=== PATIENT | male | born 1980 | race Two or more races ===

== ENCOUNTER 2017-04-04 18:48 | Emergency (ER) | payer MEDICARE, MEDICAID ==
[2017-04-04 19:14] VITALS: BP 140/84
[2017-04-04] MEDS ORDERED: Cephalexin 500 MG Cap PO ONE (19:37)
[2017-04-04] MEDS ORDERED: Hydrocortisone/Neomycin/Polymyxin B Otic Susp 10 ML Bottle EARRT STA (19:39)
[2017-04-04] MEDS ORDERED: Acetaminophen/HYDROcodone 325-5 MG Tab PO STA (19:41)
[2017-04-04] MEDS ORDERED: Hydrocortisone/Neomycin/Polymyxin B Otic Susp 10 ML Bottle ONE (19:42)
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
[2017-04-04] MEDS ORDERED: Acetaminophen/HYDROcodone 325-5 MG Tab PO ONE (20:03)
[2017-04-04] MEDS ORDERED: Ketorolac 60 MG/2 ML SDV IM ONE (20:03)
== END 2017-04-04 20:10 | disposition home or self-care (01) ==
LOC: FB.ED 18:48
DX: H60.501 Unspecified acute noninfective otitis externa, right ear (principal); H65.194 Other acute nonsuppurative otitis media, recurrent, right ear; E78.00 Pure hypercholesterolemia, unspecified; I10 Essential (primary) hypertension; E11.9 Type 2 diabetes mellitus without complications; F41.9 Anxiety disorder, unspecified; F32.9 Major depressive disorder, single episode, unspecified; F17.210 Nicotine dependence, cigarettes, uncomplicated; Z79.899 Other long term (current) drug therapy
CPT/HCPCS: 96372; 99282; A9270; J1885; 99283

== ENCOUNTER 2017-04-08 20:08 | Emergency (ER) | payer MEDICARE, MEDICAID ==
[2017-04-08] MEDS ORDERED: Fluticasone Propionate Nasal Spray 16 GM Bottle NASBOTH SCH (20:45)
[2017-04-08 21:01] VITALS: BP 133/67
--- NOTE | 2017-04-09 00:40 | ER ---
DATE SEEN: 04/08/2017 CHIEF COMPLAINT: Pain in ear. HISTORY OF PRESENT ILLNESS: A 37-year-old male with ear infection, complains of pain, fullness on the right. Has been taking [place] with no relief. He saw Dr. Marquez earlier today, who sent was suppose to send a prescription for a Flonase, but apparently it was missed. REVIEW OF SYSTEMS: No fever or chills. No sore throat. No headache. MEDICATIONS: Reviewed. PHYSICAL EXAMINATION: GENERAL: Afebrile, normotensive. HEENT: Head normal size. Eyes normal. Neck supple. Oropharynx clear. Ears, external ears normal. Canals are patent. The right TM is inflamed, erythematous, and bulging. IMPRESSION: Otitis media. PLAN: The Flonase was given to use two puffs nasally b.i.d. May use Claritin as well, which helped with congestion. Follow up with PCP tomorrow. Return to the ED with worsening symptoms. TIME SEEN: 2030 hours. /[id number] TERE/VANIA
== END 2017-04-08 21:10 | disposition home or self-care (01) ==
LOC: FB.ED 20:08
DX: H66.91 Otitis media, unspecified, right ear (principal)
CPT/HCPCS: 99282; A9270

== ENCOUNTER 2018-11-16 00:14 | Emergency (ER) | payer MEDICARE, MEDICAID ==
[2018-11-16] MEDS ORDERED: Sodium Chloride 0.9% 10 ML Syringe FLUSH PRN (01:03)
[2018-11-16] MEDS ORDERED: Sodium Chloride 0.9% 1,000 ML IV ONE (01:03)
[2018-11-16 02:47] LABS: HEMOGLOBIN A1C 8.4 % (4.5-6.2)
[2018-11-16] MEDS ORDERED: LORazepam 1 MG Tab PO ONE (02:49)
[2018-11-16 03:07] VITALS: BP 146/93
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
== END 2018-11-16 03:00 | disposition home or self-care (01) ==
LOC: FB.ED 00:14
DX: F41.0 Panic disorder [episodic paroxysmal anxiety] (principal); F45.8 Other somatoform disorders; E66.01 Morbid (severe) obesity due to excess calories; H54.42 Blindness, left eye, normal vision right eye; F17.210 Nicotine dependence, cigarettes, uncomplicated; I10 Essential (primary) hypertension; E66.9 Obesity, unspecified; E11.9 Type 2 diabetes mellitus without complications; Z79.899 Other long term (current) drug therapy
CPT/HCPCS: 36415; 80053; 82150; 83036; 84484; 85025; 93005; 96360; 99283; A9270; J7030

== ENCOUNTER 2018-12-24 02:53 | Emergency (ER) | payer MEDICAID, MEDICARE ==
[2018-12-24 03:14] VITALS: BP 137/60
[2018-12-24] MEDS ORDERED: Amoxicillin/Clavulanate K 875-125 MG Tab PO ONE (03:35)
--- NOTE | 2018-12-24 03:39 | EDM.PDOC ---
ED HPI GENERAL MEDICAL PROBLEM - General Chief Complaint: ENT Problem Stated Complaint: ANXIETY Time Seen by Provider: 12/24/18 02:53 Source of Information: Reports: Patient History Limitations: Reports: No Limitations - History of Present Illness INITIAL COMMENTS - FREE TEXT/NARRATIVE: 38 y.o.b. male came to the ed this am due to sore throat, his throat is swelling up, it hurts to eat and drink. He took 2 Xanax for pain FILTERER, no help. No N/V/D no dizziness no SOB, no CP, no other acute medical issues. BP 137/60 RR 18 Pulse ox 99% on RP Pulse 80 Temp 36.8 Onset: Gradual Onset Date: 12/24/18 Onset Time: 01:00 Duration: Hour(s):, Intermittent Location: Reports: Face (throat) Quality: Reports: Ache, Burning Severity: Moderate Improves with: Reports: Medication Worsens with: Reports: Other (swallowing water) Context: Reports: Sick Contact Treatments FILTERER: Reports: Other Medication(s) (Xanex) - Related Data Allergies Allergy/AdvReac Type Severity Reaction Status Date / Time No Known Allergies Allergy Verified 12/24/18 03:34 Home Meds: Home Meds Lisinopril 20 mg PO DAILY 06/13/18 [History] metFORMIN [Glucophage XR] 500 mg PO BIDMEALS 06/13/18 [History] ALPRAZolam 2 mg PO TID PRN 11/16/18 [History] Atenolol/Chlorthalidone [Atenolol-Chlorthalidone 100-25] 1 tab PO DAILY [History] Gabapentin [Neurontin] 600 mg PO BID PRN 11/16/18 [History] atorvaSTATin Calcium [Atorvastatin Calcium] 20 mg PO DAILY 11/16/18 [History] Amoxicillin/Potassium Clav [Augmentin 875-125 Tablet] 1 each PO BID #20 tablet 12/24/18 [Rx] Past Medical History HEENT History: Reports: None Other HEENT History: left eye blind Cardiovascular History: Reports: High Cholesterol, Hypertension Psychiatric History: Reports: Anxiety, Depression, Panic Attack Endocrine/Metabolic History: Reports: Diabetes, Type II, Obesity/BMI 30+ Social & Family History - Family History Family Medical History: Noncontributory - Tobacco Use Smoking Status *Q: Current Every Day Smoker Years of Tobacco use: 8 Packs/Tins Daily: 0 - Caffeine Use Caffeine Use: Reports: None - Recreational Drug Use Recreational Drug Use: No ED ROS ENT - Review of Systems Review Of Systems: See Below Constitutional: Reports: No Symptoms HEENT: Reports: Throat Pain Respiratory: Reports: No Symptoms Cardiovascular: Reports: No Symptoms Endocrine: Reports: No Symptoms GI/Abdominal: Reports: No Symptoms : Reports: No Symptoms Musculoskeletal: Reports: No Symptoms Skin: Reports: No Symptoms Neurological: Reports: No Symptoms Psychiatric: Reports: No Symptoms Hematologic/Lymphatic: Reports: No Symptoms Immunologic: Reports: No Symptoms ED EXAM, ENT - Physical Exam Exam: See Below Exam Limited By: No Limitations General Appearance: Alert, WD/WN, Mild Distress Eye Exam: Bilateral Eye: Normal Inspection Ears: Normal External Exam, Normal Canal Nose: Normal Inspection, Normal Mucousa, No Blood Mouth/Throat: Normal Lips, Pharyngeal Erythema, Throat Pain Head: Atraumatic, Normocephalic Neck: Normal Inspection, Supple, Non-Tender, Full Range of Motion Respiratory/Chest: No Respiratory Distress, Lungs Clear, Normal Breath Sounds, Chest Non-Tender Cardiovascular: Normal Peripheral Pulses, Regular Rate, Rhythm, No Edema, No Gallop, No Murmur GI/Abdominal: Normal Bowel Sounds, Soft, Non-Tender, No Organomegaly, No Abnormal Bruit, No Mass, Pelvis Stable (Male) Exam: Deferred Rectal (Males) Exam: Deferred Back: Normal Inspection, Full Range of Motion Extremities: Normal Inspection, Normal Range of Motion, Non-Tender, No Pedal Edema Neurological: Alert, Oriented, CN II-XII Intact, Normal Cognition, Normal Gait, No Motor/Sensory Deficits Psychiatric: Normal Affect, Normal Mood Skin: Warm, Dry, Intact, Normal Color, No Rash Lymphatic: No Adenopathy Course - Vital Signs Text/Narrative:: 38 y.o.b. male came to the ed this am due to sore throat, his throat is swelling up, it hurts to eat and drink. He took 2 Xanax for pain FILTERER, no help. No N/V/D no dizziness no SOB, no CP, no other acute medical issues. BP 137/60 RR 18 Pulse ox 99% on RP Pulse 80 Temp 36.8 PE: WNWD B M with sore throat, posterior pharyngitis. Labs: RST pos Impression: Strep pharyngitis Tx: Augmentin Reexam: Improved Plan: D/C with instructions Last Recorded V/S: Last Vital Signs Temp 36.8 C 12/24/18 02:53 Pulse 80 12/24/18 02:53 Resp 18 12/24/18 02:53 BP 137/60 12/24/18 02:53 Pulse Ox 99 12/24/18 02:53 - Orders/Labs/Meds Labs: Laboratory Tests 12/24/18 Range/Units 03:06 POC Glucose 261 H D (80-116) mg/dL Meds: Medications Discontinued Medications Generic Name Dose Route Start Last Admin Trade Name Fidencioq PRN Reason Stop Dose Admin Amoxicillin/Clavulanate Potassium 1 tab 12/24/18 03:35 12/24/18 03:41 Augmentin 875 Mg/125 Mg PO 12/24/18 03:36 1 tab ONETIME ONE Administration Departure - Departure Time of Disposition: 03:36 Disposition: Home, Self-Care 01 Condition: Good Clinical Impression: Strep sore throat - Discharge Information Prescriptions: Amoxicillin/Potassium Clav [Augmentin 875-125 Tablet] 1 each PO BID #20 tablet Instructions: Amoxicillin; Clavulanic Acid tablets, Strep Throat Referrals: Dion Marquez MD [Primary Care Provider] - Forms: ED Department Discharge Additional Instructions: Please take the ABx as recommended, please apply Salt water gurgling, motrin for pain, F/U, come back if your symptoms get worse acutely
== END 2018-12-24 03:45 | disposition home or self-care (01) ==
LOC: FB.ED 02:53
DX: J02.0 Streptococcal pharyngitis (principal); E78.00 Pure hypercholesterolemia, unspecified; I10 Essential (primary) hypertension; F17.210 Nicotine dependence, cigarettes, uncomplicated; Z79.899 Other long term (current) drug therapy
CPT/HCPCS: 82962; 87880; 99282; A9270

== ENCOUNTER 2019-03-16 22:25 | Emergency (ER) | payer MEDICARE, MEDICAID ==
[2019-03-16] MEDS ORDERED: LORazepam 2 MG/ML SDV IM ONE (22:42)
--- NOTE | 2019-03-16 22:46 | EDM.PDOCBH ---
ED HPI GENERAL MEDICAL PROBLEM - General Stated Complaint: SUGAR LEVEL Time Seen by Provider: 03/16/19 22:43 Source of Information: Reports: Patient History Limitations: Reports: No Limitations - History of Present Illness INITIAL COMMENTS - FREE TEXT/NARRATIVE: 39 yo male complaining of anxiety. Sudden onset tonight. Attended by dizziness, difficulty swallowing,impeding doom,numbness all over. Took Xanax,no improvement. Denies CP. Has a h/o Chronic back pain,JAYSON,Type 2 Diabetes. - Related Data Allergies Allergy/AdvReac Type Severity Reaction Status Date / Time No Known Allergies Allergy Verified 03/16/19 22:44 Home Meds: Home Meds Lisinopril 20 mg PO DAILY 06/13/18 [History] metFORMIN [Glucophage XR] 1,000 mg PO BIDMEALS 06/13/18 [History] ALPRAZolam 2 mg PO TID PRN 11/16/18 [History] Atenolol/Chlorthalidone [Atenolol-Chlorthalidone 100-25] 1 tab PO DAILY [History] Gabapentin [Neurontin] 600 mg PO BID PRN 11/16/18 [History] atorvaSTATin Calcium [Atorvastatin Calcium] 20 mg PO DAILY 11/16/18 [History] Dapagliflozin Propanediol [Farxiga] 5 mg PO ASDIRECTED 03/16/19 [History] Past Medical History HEENT History: Reports: None Other HEENT History: left eye blind Cardiovascular History: Reports: High Cholesterol, Hypertension Psychiatric History: Reports: Anxiety, Depression, Panic Attack Endocrine/Metabolic History: Reports: Diabetes, Type II, Obesity/BMI 30+ Social & Family History - Family History Family Medical History: Noncontributory - Caffeine Use Caffeine Use: Reports: None ED ROS GENERAL - Review of Systems Review Of Systems: ROS reveals no pertinent complaints other than HPI. ED EXAM, BEHAVIORAL HEALTH - Physical Exam Exam: See Below Exam Limited By: No Limitations General Appearance: Alert, WD/WN, No Apparent Distress, Anxious Ears: Normal External Exam Throat/Mouth: Normal Inspection Head: Atraumatic Neck: Normal Inspection Respiratory/Chest: No Respiratory Distress Cardiovascular: Normal Peripheral Pulses EKG INTERPRETATION Rhythm: NSR COURSE, BEHAVIORAL HEALTH COMP - Course Vital Signs: Last Vital Signs Temp 98.4 F 03/16/19 23:23 Pulse 76 05/09/19 23:23 Resp 18 03/16/19 23:23 BP 135/71 03/16/19 23:23 Pulse Ox 100 03/16/19 23:23 Orders, Labs, Meds: Laboratory Tests 03/16/19 Range/Units 22:34 POC Glucose 296 H (80-116) mg/dL Medications Discontinued Medications Generic Name Dose Route Start Last Admin Trade Name Tia PRN Reason Stop Dose Admin Hydroxyzine HCl 100 mg 03/16/19 23:38 03/16/19 23:45 Vistaril IM 03/16/19 23:39 100 mg ONETIME ONE Administration Lorazepam 1 mg 03/16/19 22:42 03/16/19 22:55 Ativan IM 03/16/19 22:43 1 mg ONETIME ONE Administration Departure - Departure Time of Disposition: 00:30 Disposition: Home, Self-Care 01 Condition: Good Clinical Impression: Anxiety - Discharge Information Referrals: Dion Marquez MD [Primary Care Provider] - Forms: ED Department Discharge - Problem List & Annotations (1) Panic attacks SNOMED Code(s): 470367702 Code(s): F41.0 - PANIC DISORDER [EPISODIC PAROXYSMAL ANXIETY] Status: Acute - Problem List Review Problem List Initiated/Reviewed/Updated: Yes - Assessment/Plan Last 24 Hours: Treated with Lorazepam and Vistaril.Reassurance.DC home.See Dr Marquez next week Plan: EKG was unremarkable. Accucheck 296. I gave him Lorazem. Some improvement. DC home
[2019-03-16 23:33] VITALS: BP 135/71
[2019-03-16] MEDS ORDERED: hydrOXYzine HCl 50 MG/ML SDV IM ONE (23:38)
== END 2019-03-16 23:55 | disposition home or self-care (01) ==
LOC: FB.ED 22:25
DX: F41.9 Anxiety disorder, unspecified (principal); I10 Essential (primary) hypertension; E78.00 Pure hypercholesterolemia, unspecified; F32.9 Major depressive disorder, single episode, unspecified; E11.9 Type 2 diabetes mellitus without complications; Z79.84 Long term (current) use of oral hypoglycemic drugs; Z79.899 Other long term (current) drug therapy
CPT/HCPCS: 82962; 93005; 96372; 99283; J2060; J3410

== ENCOUNTER 2019-03-20 19:30 | Emergency (ER) | payer MEDICARE, MEDICAID ==
[2019-03-20] MEDS ORDERED: Sodium Chloride 0.9% 10 ML Syringe FLUSH PRN (20:11)
[2019-03-20] MEDS ORDERED: LORazepam 2 MG/ML SDV IVPUSH ONE (20:12)
[2019-03-20] MEDS ORDERED: Potassium Chloride 10% 20 MEQ/15 ML Soln 15 ML UD Cup PO ONE (21:51)
[2019-03-20] MEDS ORDERED: Sodium Chloride 0.9% 1,000 ML IV ONE (21:51)
--- NOTE | 2019-03-20 22:01 | EDM.PDOC ---
ED HPI GENERAL MEDICAL PROBLEM - General Chief Complaint: General Stated Complaint: LIGHT HEADED Time Seen by Provider: 03/20/19 21:00 Source of Information: Reports: Patient History Limitations: Reports: No Limitations - History of Present Illness INITIAL COMMENTS - FREE TEXT/NARRATIVE: 39-year-old male who has a history of diabetes mellitus and reports that his diabetes has not been very well-controlled recently. He has had episodes where he felt dizzy and near syncopal and has even been in the emergency department for evaluation of this in the past 2 weeks. Today, he took his morning metformin but did not take his afternoon metformin dose with him to work and while at work he was feeling somewhat dizzy with activity and with walking. He also felt thirsty and was urinating more frequently and this is been the case with the past 2 weeks as well. He was a passenger in a vehicle on the way home and they stopped and ate at [employer] chicken and following this while in the car he began to feel very weak and like he was going to pass out. He had numbness and tingling in both of his hands. He had no chest pain. He had no shortness of breath. The symptoms failed to pass and he presented to the emergency department for evaluation. He denies any pain at this point. He rates his pain as a 0/10. He has had 3 cups of water prior to me seeing him and he states he feels what improved after this. He still feels somewhat weak all over. Has some tingling in both of his hands. He has no chest pain. He has no shortness of breath. He has had no nausea or vomiting. He has not been checking his blood sugars because his glucometer is not working. He is supposed to be following up with his primary doctor but has not made that appointment yet. He is also supposed to see the diabetic financial wellness coach at the clinic and he has not seen that person yet either. There are no other associated signs or symptoms. There are no other modifying factors. 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 (see below) (Nothing) - Related Data Allergies Allergy/AdvReac Type Severity Reaction Status Date / Time No Known Allergies Allergy Verified 03/20/19 20:00 Home Meds: Home Meds Lisinopril 20 mg PO DAILY 06/13/18 [History] metFORMIN [Glucophage XR] 1,000 mg PO BIDMEALS 06/13/18 [History] ALPRAZolam 2 mg PO TID PRN 11/16/18 [History] Atenolol/Chlorthalidone [Atenolol-Chlorthalidone 100-25] 1 tab PO DAILY [History] Gabapentin [Neurontin] 600 mg PO BID PRN 11/16/18 [History] atorvaSTATin Calcium [Atorvastatin Calcium] 20 mg PO DAILY 11/16/18 [History] Dapagliflozin Propanediol [Farxiga] 5 mg PO ASDIRECTED 03/16/19 [History] Past Medical History HEENT History: Reports: Impaired Vision Other HEENT History: left eye blind Cardiovascular History: Reports: High Cholesterol, Hypertension Psychiatric History: Reports: Anxiety, Depression, Panic Attack Endocrine/Metabolic History: Reports: Diabetes, Type II, Obesity/BMI 30+ - Past Surgical History Other Surgical History Comment: No previous surgeries. 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) ED ROS GENERAL - Review of Systems Review Of Systems: See Below Constitutional: Reports: Fatigue HEENT: Reports: Other (Dry mouth) Respiratory: Reports: No Symptoms Cardiovascular: Reports: No Symptoms Endocrine: Reports: Polydypsia, Polyuria GI/Abdominal: Reports: No Symptoms : Denies: Dysuria, Flank Pain, Hematuria, Urgency Musculoskeletal: Reports: No Symptoms Skin: Reports: No Symptoms Neurological: Reports: Dizziness, Other (Your syncope) Psychiatric: Reports: Anxiety Hematologic/Lymphatic: Reports: No Symptoms Immunologic: Reports: No Symptoms ED EXAM, DIZZINESS - Physical Exam Exam: See Below Exam Limited By: No Limitations General Appearance: Alert, Mild Distress, Obese Eye Exam: Bilateral Eye: EOMI, Normal Inspection, PERRL Ears: Normal External Exam, Hearing Grossly Normal Nose: Normal Inspection, Normal Mucosa, No Blood Throat/Mouth: Normal Voice, No Airway Compromise, Other (Somewhat dry membranes. No ketotic breath.) Head Exam: Atraumatic, Normocephalic Neck: Normal Inspection, Supple, Non-Tender, Full Range of Motion Respiratory/Chest: No Respiratory Distress, Lungs Clear, Normal Breath Sounds, No Accessory Muscle Use, Chest Non-Tender Cardiovascular: Normal Peripheral Pulses, Regular Rate, Rhythm, No JVD GI/Abdominal: Normal Bowel Sounds, Soft, Non-Tender, No Mass, Other (Protuberant ) Neurological: Alert, CN II-XII Intact, No Motor/Sensory Deficits, Oriented x 3 Back Exam: Normal Inspection Extremities: Normal Inspection, Normal Range of Motion, Non-Tender, No Pedal Edema, Normal Capillary Refill Psychiatric: Anxious Skin Exam: Warm, Dry, Intact, Normal Color, No Rash EKG INTERPRETATION EKG Date: 03/20/19 Time: 19:46 Rhythm: NSR Rate (Beats/Min): 84 [place]: RAD-Right [place] Deviation (mild) P-Wave: Present QRS: Other (? RVH) ST-T: Normal QT: Normal EKG Interpretation Comments: Normal sinus rhythm with a rate of 84. Slight right axis. Questionable RVH. No current of injury. Normal QTC. Course - Orders/Labs/Meds Orders: Active Orders 24 hr Category Date Time Status Accu Check [Blood Glucose Check, Bedside] [RC] ONETIME Care 03/20/19 23:32 Active Blood Glucose Check, Bedside [RC] ONETIME Care 03/20/19 19:30 Active Blood Glucose Check, Bedside [RC] ONETIME Care 03/20/19 21:50 Active EKG Documentation Completion [RC] ASDIRECTED Care 03/20/19 19:30 Active Orthostatic Vital Signs [RC] ASDIRECTED Care 03/20/19 20:12 Active Sodium Chloride 0.9% [Saline Flush] Med 03/20/19 20:11 Active 10 ml FLUSH ASDIRECTED PRN Peripheral IV Insertion Adult [OM.PC] Routine Oth 03/20/19 20:11 Ordered EKG 12 Lead [EK] Routine Ther 03/20/19 19:30 Ordered Medication Orders Sodium Chloride (Saline Flush) 10 ml FLUSH ASDIRECTED PRN PRN Reason: Keep Vein Open Last Admin: 03/20/19 21:23 Dose: 10 ml Labs: Laboratory Tests 03/20/19 03/20/19 03/20/19 Range/Units 19:56 20:25 20:25 WBC 11.2 (4.5-12.0) X10-3/uL RBC 5.52 (4.30-5.75) x10(6)uL Hgb 16.9 (13.5-17.8) g/dL Hct 49.0 (30.0-51.3) % MCV 88.8 (80-96) fL MCH 30.6 (27.7-33.6) pg MCHC 34.5 (32.2-35.4) g/dL RDW 12.1 (11.5-15.5) % Plt Count 235 (125-369) X10(3)uL MPV 9.2 (7.4-10.4) fL Neut % (Auto) 53.7 (46-82) % Lymph % (Auto) 35.8 (13-37) % [place] % (Auto) 5.1 (4-12) % Eos % (Auto) 5 (1.0-5.0) % Baso % (Auto) 0 (0-2) % Neut # (Auto) 6.0 (1.6-8.3) # Lymph # (Auto) 4.0 (0.6-5.0) # [place] # (Auto) 0.6 (0.0-1.3) # Eos # (Auto) 0.6 (0.0-0.8) # Baso # (Auto) 0.0 (0.0-0.2) # D-Dimer, Quantitative 0.24 (0.0-0.59) mg/LFEU Sodium (135-145) mmol/L Potassium (3.5-5.3) mmol/L Chloride (100-110) mmol/L Carbon Dioxide (21-32) mmol/L BUN (7-18) mg/dL Creatinine (0.70-1.30) mg/dL Est Cr Clr Drug Dosing mL/min Estimated GFR (MDRD) (>60) BUN/Creatinine Ratio (9-20) Glucose (80-116) mg/dL Calcium (8.6-10.2) mg/dL Magnesium (1.8-2.5) mg/dL Total Bilirubin (0.1-1.3) mg/dL AST (5-25) IU/L ALT (12-36) U/L Alkaline Phosphatase (56-112) IU/L Troponin I (<0.017-0.056) ng/mL C-Reactive Protein (0.5-0.9) mg/dL Total Protein (6.0-8.0) g/dL Albumin (3.5-5.2) g/dL Globulin g/dL Albumin/Globulin Ratio Urine Color Yellow (YELLOW) Urine Appearance Clear (CLEAR) Urine pH 5.0 (5.0-6.5) Ur Specific [place] 1.015 (1.010-1.025) Urine Protein Negative (NEGATIVE) mg/dL Urine Glucose (UA) >1000 H (NORMAL) mg/dL Urine Ketones Negative (NEGATIVE) mg/dL Urine Occult Blood Negative (NEGATIVE) Urine Nitrite Negative (NEGATIVE) Urine Bilirubin Negative (NEGATIVE) Urine Urobilinogen Normal (NEGATIVE) mg/dL Ur Leukocyte Esterase Negative (NEGATIVE) Urine RBC Not seen (0-5) Urine WBC 0-5 (0-5) Ur Squamous Epith Cells Few H (NS,R,O) Urine Bacteria Moderate H (NS) 03/20/19 03/20/19 Range/Units 20:25 20:25 WBC (4.5-12.0) X10-3/uL RBC (4.30-5.75) x10(6)uL Hgb (13.5-17.8) g/dL Hct (30.0-51.3) % MCV (80-96) fL MCH (27.7-33.6) pg MCHC (32.2-35.4) g/dL RDW (11.5-15.5) % Plt Count (125-369) X10(3)uL MPV (7.4-10.4) fL Neut % (Auto) (46-82) % Lymph % (Auto) (13-37) % [place] % (Auto) (4-12) % Eos % (Auto) (1.0-5.0) % Baso % (Auto) (0-2) % Neut # (Auto) (1.6-8.3) # Lymph # (Auto) (0.6-5.0) # [place] # (Auto) (0.0-1.3) # Eos # (Auto) (0.0-0.8) # Baso # (Auto) (0.0-0.2) # D-Dimer, Quantitative (0.0-0.59) mg/LFEU Sodium 139 (135-145) mmol/L Potassium 3.3 L (3.5-5.3) mmol/L Chloride 99 L (100-110) mmol/L Carbon Dioxide 30 (21-32) mmol/L BUN 9 (7-18) mg/dL Creatinine 1.1 (0.70-1.30) mg/dL Est Cr Clr Drug Dosing 82.97 mL/min Estimated GFR (MDRD) > 60 (>60) BUN/Creatinine Ratio 8.2 L (9-20) Glucose 434 H* D (80-116) mg/dL Calcium 9.1 (8.6-10.2) mg/dL Magnesium 1.6 L (1.8-2.5) mg/dL Total Bilirubin 0.3 (0.1-1.3) mg/dL AST 41 H D (5-25) IU/L ALT 120 H D (12-36) U/L Alkaline Phosphatase 107 (56-112) IU/L Troponin I < 0.017 L (<0.017-0.056) ng/mL C-Reactive Protein 0.3 L (0.5-0.9) mg/dL Total Protein 6.9 (6.0-8.0) g/dL Albumin 3.8 (3.5-5.2) g/dL Globulin 3.1 g/dL Albumin/Globulin Ratio 1.2 Urine Color (YELLOW) Urine Appearance (CLEAR) Urine pH (5.0-6.5) Ur Specific [place] (1.010-1.025) Urine Protein (NEGATIVE) mg/dL Urine Glucose (UA) (NORMAL) mg/dL Urine Ketones (NEGATIVE) mg/dL Urine Occult Blood (NEGATIVE) Urine Nitrite (NEGATIVE) Urine Bilirubin (NEGATIVE) Urine Urobilinogen (NEGATIVE) mg/dL Ur Leukocyte Esterase (NEGATIVE) Urine RBC (0-5) Urine WBC (0-5) Ur Squamous Epith Cells (NS,R,O) Urine Bacteria (NS) Meds: Medications Generic Name Dose Route Start Last Admin Trade Name Freq PRN Reason Stop Dose Admin Sodium Chloride 10 ml 03/20/19 20:11 03/20/19 21:23 Saline Flush FLUSH 10 ml ASDIRECTED PRN Administration Keep Vein Open Discontinued Medications Generic Name Dose Route Start Last Admin Trade Name Tia PRN Reason Stop Dose Admin Magnesium Sulfate 1 gm/ 52 mls @ 100 mls/hr 03/20/19 21:51 03/20/19 22:34 Dextrose/Water IV 03/20/19 22:22 100 mls/hr ONETIME ONE Administration Sodium Chloride 1,000 mls @ 999 mls/hr 03/20/19 21:51 03/20/19 22:07 Normal Saline IV 03/20/19 22:51 999 mls/hr .BOLUS ONE Administration Lorazepam 0.5 mg 03/20/19 20:12 03/20/19 21:22 Ativan IVPUSH 03/20/19 20:13 0.5 mg ONETIME ONE Administration Potassium Chloride 40 meq 03/20/19 21:51 03/20/19 22:04 Potassium Chloride Solution PO 03/20/19 21:52 40 meq ONETIME ONE Administration - Re-Assessments/Exams Free Text/Narrative Re-Assessment/Exam: 03/20/19 23:50: Patient's repeat blood sugar was 295 mg/dL. After 1 L of IV normal saline and oral potassium and IV magnesium, he is feeling much improved. He was advised to continue to take his metformin as directed. He should not taken until tomorrow. He was also advised to keep his appointment with Dr. Marquez and to see the diabetic financial wellness coach this week. Departure - Departure Time of Disposition: 23:58 Disposition: Home, Self-Care 01 Clinical Impression: Near syncope, Dehydration, Hypokalemia, Hypomagnesemia Diabetes mellitus type II, uncontrolled Qualifiers: Glycemic state: with hyperglycemia Qualified Code(s): E11.65 - Type 2 diabetes mellitus with hyperglycemia - Discharge Information Instructions: Near-Syncope, Type 2 Diabetes Mellitus, Self Care, Adult Referrals: Dion Marquez MD [Primary Care Provider] - Forms: ED Department Discharge Additional Instructions: Your diabetes mellitus is not well-controlled. Your magnesium and potassium were somewhat low but we replaced those in the emergency department. You were also dehydrated. All of these things, I think led to your feelings of wanting to pass out. You should take your diabetic medications as prescribed. Do not take the metformin again until tomorrow morning. Increase your fluid intake. Try to stick more closely to your diabetic diet. Avoid concentrated sweets. Follow-up with the diabetic financial wellness coach this week. Follow-up with Dr. Marquez as planned. Back to the emergency department for vomiting, continued feelings of wanting to pass out or dizziness, chest pain, shortness of breath or any other concerning sign or symptom. - My Orders Last 24 Hours: My Active Orders 03/20/19 19:30 Blood Glucose Check, Bedside [RC] ONETIME EKG Documentation Completion [RC] ASDIRECTED EKG 12 Lead [EK] Routine 03/20/19 20:11 Sodium Chloride 0.9% [Saline Flush] 10 ml FLUSH ASDIRECTED PRN Peripheral IV Insertion Adult [OM.PC] Routine 03/20/19 20:12 Orthostatic Vital Signs [RC] ASDIRECTED 03/20/19 21:50 Blood Glucose Check, Bedside [RC] ONETIME 03/20/19 23:32 Accu Check [Blood Glucose Check, Bedside] [RC] ONETIME - Assessment/Plan Last 24 Hours: My Active Orders 03/20/19 19:30 Blood Glucose Check, Bedside [RC] ONETIME EKG Documentation Completion [RC] ASDIRECTED EKG 12 Lead [EK] Routine 03/20/19 20:11 Sodium Chloride 0.9% [Saline Flush] 10 ml FLUSH ASDIRECTED PRN Peripheral IV Insertion Adult [OM.PC] Routine 03/20/19 20:12 Orthostatic Vital Signs [RC] ASDIRECTED 03/20/19 21:50 Blood Glucose Check, Bedside [RC] ONETIME 03/20/19 23:32 Accu Check [Blood Glucose Check, Bedside] [RC] ONETIME
[2019-03-21 05:20] VITALS: BP 111/70
== END 2019-03-21 00:20 | disposition home or self-care (01) ==
LOC: FB.ED 19:30
DX: E11.65 Type 2 diabetes mellitus with hyperglycemia (principal); E87.6 Hypokalemia; E83.42 Hypomagnesemia; E86.0 Dehydration; I10 Essential (primary) hypertension; E66.9 Obesity, unspecified; F17.200 Nicotine dependence, unspecified, uncomplicated; Z79.84 Long term (current) use of oral hypoglycemic drugs; Z79.899 Other long term (current) drug therapy
CPT/HCPCS: 36415; 80053; 81001; 82962; 83735; 84484; 85025; 85379; 86140; 93005; 96365; 96375; 99284; A9270; J2060; J3475; J7030; J7060

== ENCOUNTER 2019-03-22 23:34 | Emergency (ER) | payer MEDICARE, MEDICAID ==
--- NOTE | 2019-03-23 00:06 | EDM.PDOC ---
ED HPI GENERAL MEDICAL PROBLEM - General Chief Complaint: General Stated Complaint: LIGHT HEADED Time Seen by Provider: 03/23/19 00:00 Source of Information: Reports: Patient, Old Records History Limitations: Reports: No Limitations - History of Present Illness INITIAL COMMENTS - FREE TEXT/NARRATIVE: Mars returns to [facility] ED with ongoing sxs of dizziness, lt headiness, blurred vision, dry mouth, polydipsia, polyuria, tingling in the hands and feet. weakness, and malaise, identical to visit of . His nonFBS 434 mg% on Metformin 1 gm BID and Forxiga 5 mg q am. He was managed with IV saline, MgS04 and KCl infusion earlier this week. He does not have a functioning glucometer. He did make an appt to see PCP next week. - Related Data Allergies Allergy/AdvReac Type Severity Reaction Status Date / Time No Known Allergies Allergy Verified 03/22/19 23:43 Home Meds: Home Meds Lisinopril 20 mg PO DAILY 06/13/18 [History] metFORMIN [Glucophage XR] 1,000 mg PO BIDMEALS 06/13/18 [History] ALPRAZolam 2 mg PO TID PRN 11/16/18 [History] Atenolol/Chlorthalidone [Atenolol-Chlorthalidone 100-25] 1 tab PO DAILY [History] Gabapentin [Neurontin] 600 mg PO BID PRN 11/16/18 [History] atorvaSTATin Calcium [Atorvastatin Calcium] 20 mg PO DAILY 11/16/18 [History] Past Medical History HEENT History: Reports: Impaired Vision Other HEENT History: left eye blind Cardiovascular History: Reports: High Cholesterol, Hypertension Psychiatric History: Reports: Anxiety, Depression, Panic Attack Endocrine/Metabolic History: Reports: Diabetes, Type II, Obesity/BMI 30+ - Past Surgical History Other Surgical History Comment: No previous surgeries. 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) ED ROS GENERAL - Review of Systems Review Of Systems: See Below Constitutional: Reports: Malaise, Weakness, Fatigue HEENT: Reports: Vision Change Respiratory: Reports: No Symptoms Cardiovascular: Reports: Lightheadedness Endocrine: Reports: Fatigue, High Glucose, Polydypsia, Polyuria, Other ( paresthesias) GI/Abdominal: Reports: No Symptoms : Reports: Frequency Musculoskeletal: Reports: No Symptoms Skin: Reports: No Symptoms Neurological: Reports: Dizziness, Headache, Paresthesia, Tingling, Weakness Psychiatric: Reports: No Symptoms Hematologic/Lymphatic: Reports: No Symptoms Immunologic: Reports: No Symptoms ED EXAM, GENERAL - Physical Exam Exam: See Below Exam Limited By: No Limitations General Appearance: Alert, WD/WN, Anxious, Obese Eye Exam: Bilateral Eye: EOMI, Normal Inspection, PERRL Ears: Normal External Exam Throat/Mouth: Normal Inspection Head: Normocephalic Neck: Normal Inspection, Supple Respiratory/Chest: Lungs Clear, Normal Breath Sounds Cardiovascular: Regular Rate, Rhythm, No Murmur GI/Abdominal: Normal Bowel Sounds, Soft, Non-Tender, No Organomegaly, No Distention, No Mass (Male) Exam: Deferred Rectal (Males) Exam: Deferred Back Exam: Normal Inspection Extremities: Normal Inspection Neurological: Alert, Oriented, CN II-XII Intact, Normal Cognition, Normal Gait Psychiatric: Normal Affect, Anxious Lymphatic: No Adenopathy Course - Vital Signs Text/Narrative:: Following assessment, an IV was started in the RUE, and 2L of NS was administered pending results of lab studies. His non FBS 164 mg% was improved. The Hgb A1c 10.6% is poor. Other lab studies were stable. Sxs continued inspite of rehydration, and patient elected to return home and follow up with PCP. Last Recorded V/S: Last Vital Signs Temp 36.4 C 03/22/19 23:34 Pulse 82 03/22/19 23:34 Resp 17 03/22/19 23:34 BP 143/88 H 03/22/19 23:34 Pulse Ox 95 03/22/19 23:34 - Orders/Labs/Meds Orders: Active Orders 24 hr Category Date Time Status Sodium Chloride 0.9% [Normal Saline] 2,000 ml Med 03/23/19 00:15 Active IV ASDIRECTED Sodium Chloride 0.9% [Saline Flush] Med 03/23/19 00:14 Active 10 ml FLUSH ASDIRECTED PRN Peripheral IV Insertion Adult [OM.PC] Routine Oth 03/23/19 00:14 Ordered Medication Orders Sodium Chloride (Normal Saline) 2,000 mls @ 999 mls/hr IV ASDIRECTED JUDY Last Admin: 03/23/19 01:33 Dose: 999 mls/hr Infusion: 03/23/19 01:33 Dose: 999 mls/hr Admin: 03/23/19 00:34 Dose: 999 mls/hr Sodium Chloride (Saline Flush) 10 ml FLUSH ASDIRECTED PRN PRN Reason: Keep Vein Open Last Admin: 03/23/19 00:34 Dose: 10 ml Labs: Laboratory Tests 03/23/19 03/23/19 03/23/19 Range/Units 00:05 00:05 00:05 WBC 12.4 H (4.5-12.0) X10-3/uL RBC 5.47 (4.30-5.75) x10(6)uL Hgb 16.4 (13.5-17.8) g/dL Hct 48.2 (30.0-51.3) % MCV 88.1 (80-96) fL MCH 29.9 (27.7-33.6) pg MCHC 34.0 (32.2-35.4) g/dL RDW 12.2 (11.5-15.5) % Plt Count 246 (125-369) X10(3)uL MPV 9.1 (7.4-10.4) fL Neut % (Auto) 40.7 L (46-82) % Lymph % (Auto) 49.3 H (13-37) % [place] % (Auto) 4.7 (4-12) % Eos % (Auto) 5 (1.0-5.0) % Baso % (Auto) 1 (0-2) % Neut # (Auto) 5.0 (1.6-8.3) # Lymph # (Auto) 6.1 H (0.6-5.0) # [place] # (Auto) 0.6 (0.0-1.3) # Eos # (Auto) 0.6 (0.0-0.8) # Baso # (Auto) 0.1 (0.0-0.2) # POC VBG pH (7.31-7.41) POC VBG pCO2 (41-51) mmHG POC VBG HCO3 (23-28) mmol/L POC VBG Total CO2 (24-29) mmol/L POC VBG Base Excess (-2-3) mmol/L Sodium 138 (135-145) mmol/L Potassium 3.2 L (3.5-5.3) mmol/L Chloride 100 (100-110) mmol/L Carbon Dioxide 26 (21-32) mmol/L BUN 18 (7-18) mg/dL Creatinine 1.0 (0.70-1.30) mg/dL Est Cr Clr Drug Dosing 94.56 mL/min Estimated GFR (MDRD) > 60 (>60) BUN/Creatinine Ratio 18.0 (9-20) Glucose 164 H D (80-116) mg/dL Hemoglobin A1c 10.6 H (4.5-6.2) % Calcium 9.3 (8.6-10.2) mg/dL Magnesium 1.7 L (1.8-2.5) mg/dL Total Bilirubin 0.5 (0.1-1.3) mg/dL AST 40 H (5-25) IU/L ALT 106 H D (12-36) U/L Alkaline Phosphatase 104 (56-112) IU/L Total Protein 7.0 (6.0-8.0) g/dL Albumin 4.0 (3.5-5.2) g/dL Globulin 3.0 g/dL Albumin/Globulin Ratio 1.3 1619 Range/Units 00:30 WBC (4.5-12.0) X10-3/uL RBC (4.30-5.75) x10(6)uL Hgb (13.5-17.8) g/dL Hct (30.0-51.3) % MCV (80-96) fL MCH (27.7-33.6) pg MCHC (32.2-35.4) g/dL RDW (11.5-15.5) % Plt Count (125-369) X10(3)uL MPV (7.4-10.4) fL Neut % (Auto) (46-82) % Lymph % (Auto) (13-37) % [place] % (Auto) (4-12) % Eos % (Auto) (1.0-5.0) % Baso % (Auto) (0-2) % Neut # (Auto) (1.6-8.3) # Lymph # (Auto) (0.6-5.0) # [place] # (Auto) (0.0-1.3) # Eos # (Auto) (0.0-0.8) # Baso # (Auto) (0.0-0.2) # POC VBG pH 7.36 (7.31-7.41) POC VBG pCO2 46.9 (41-51) mmHG POC VBG HCO3 26.2 (23-28) mmol/L POC VBG Total CO2 28 (24-29) mmol/L POC VBG Base Excess 1 (-2-3) mmol/L Sodium (135-145) mmol/L Potassium (3.5-5.3) mmol/L Chloride (100-110) mmol/L Carbon Dioxide (21-32) mmol/L BUN (7-18) mg/dL Creatinine (0.70-1.30) mg/dL Est Cr Clr Drug Dosing mL/min Estimated GFR (MDRD) (>60) BUN/Creatinine Ratio (9-20) Glucose (80-116) mg/dL Hemoglobin A1c (4.5-6.2) % Calcium (8.6-10.2) mg/dL Magnesium (1.8-2.5) mg/dL Total Bilirubin (0.1-1.3) mg/dL AST (5-25) IU/L ALT (12-36) U/L Alkaline Phosphatase (56-112) IU/L Total Protein (6.0-8.0) g/dL Albumin (3.5-5.2) g/dL Globulin g/dL Albumin/Globulin Ratio Meds: Medications Generic Name Dose Route Start Last Admin Trade Name Freq PRN Reason Stop Dose Admin Sodium Chloride 2,000 mls @ 999 mls/hr 03/23/19 00:15 03/23/19 01:33 Normal Saline IV 999 mls/hr ASDIRECTED JUDY Administration Sodium Chloride 10 ml 03/23/19 00:14 03/23/19 00:34 Saline Flush FLUSH 10 ml ASDIRECTED PRN Administration Keep Vein Open Departure - Departure Time of Disposition: 02:20 Disposition: Home, Self-Care 01 Condition: Fair Clinical Impression: Diabetes Qualifiers: Diabetes mellitus type: type 2 Diabetes mellitus skilled nursing insulin use: without long term care social worker use Diabetes mellitus complication status: with unspecified complications Qualified Code(s): E11.8 - Type 2 diabetes mellitus with unspecified complications - Discharge Information *PRESCRIPTION DRUG MONITORING PROGRAM REVIEWED*: Not Applicable *COPY OF PRESCRIPTION DRUG MONITORING REPORT IN PATIENT CELENA: Not Applicable Referrals: Dion Marquez MD [Primary Care Provider] - Forms: ED Department Discharge - Problem List & Annotations (1) Diabetes SNOMED Code(s): 54549831 Code(s): E11.9 - TYPE 2 DIABETES MELLITUS WITHOUT COMPLICATIONS Status: Acute Current Visit: Yes Annotation/Comment:: Follow up with PCP this week. Qualifiers: Diabetes mellitus type: type 2 Diabetes mellitus long term care social worker insulin use: without skilled nursing use Diabetes mellitus complication status: with unspecified complications Qualified Code(s): E11.8 - Type 2 diabetes mellitus with unspecified complications - Problem List Review Problem List Initiated/Reviewed/Updated: Yes - My Orders Last 24 Hours: My Active Orders 03/23/19 00:14 Sodium Chloride 0.9% [Saline Flush] 10 ml FLUSH ASDIRECTED PRN Peripheral IV Insertion Adult [OM.PC] Routine 03/23/19 00:15 Sodium Chloride 0.9% [Normal Saline] 2,000 ml IV ASDIRECTED - Assessment/Plan Last 24 Hours: My Active Orders 03/23/19 00:14 Sodium Chloride 0.9% [Saline Flush] 10 ml FLUSH ASDIRECTED PRN Peripheral IV Insertion Adult [OM.PC] Routine 03/23/19 00:15 Sodium Chloride 0.9% [Normal Saline] 2,000 ml IV ASDIRECTED Plan: Follow up with PCP this week.
[2019-03-23] MEDS ORDERED: Sodium Chloride 0.9% 10 ML Syringe FLUSH PRN (00:14)
[2019-03-23] MEDS: Sodium Chloride 0.9% 2,000 ML IV SCH ×2 (00:34→01:33)
[2019-03-23 00:43] LABS: HEMOGLOBIN A1C 10.6 % (4.5-6.2)
[2019-03-23 03:04] VITALS: BP 113/65
== END 2019-03-23 02:13 | disposition home or self-care (01) ==
LOC: FB.ED 23:34
DX: E11.8 Type 2 diabetes mellitus with unspecified complications (principal); F17.210 Nicotine dependence, cigarettes, uncomplicated; I10 Essential (primary) hypertension; E78.00 Pure hypercholesterolemia, unspecified; F41.9 Anxiety disorder, unspecified; F32.9 Major depressive disorder, single episode, unspecified; Z79.84 Long term (current) use of oral hypoglycemic drugs
CPT/HCPCS: 36415; 80053; 82803; 83036; 83735; 85025; 96360; 99284; J7030; 99283

== ENCOUNTER 2019-09-06 20:33 | Emergency (ER) | payer MEDICARE, MEDICAID ==
[2019-09-06] MEDS ORDERED: Ketorolac 60 MG/2 ML SDV IM ONE (20:56)
[2019-09-06] MEDS ORDERED: Acetaminophen/HYDROcodone 325-5 MG Tab PO ONE (20:57)
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
[2019-09-06 21:42] VITALS: BP 151/88; PULSE 91
== END 2019-09-06 21:55 | disposition home or self-care (01) ==
LOC: FB.ED 20:33
DX: S63.501A Unspecified sprain of right wrist, initial encounter (principal); S80.212A Abrasion, left knee, initial encounter; I10 Essential (primary) hypertension; E11.9 Type 2 diabetes mellitus without complications; E66.9 Obesity, unspecified; E78.5 Hyperlipidemia, unspecified; Z79.899 Other long term (current) drug therapy; Z79.84 Long term (current) use of oral hypoglycemic drugs; V86.96XA Unspecified occupant of dirt bike or motor/cross bike injured in nontraffic accident, initial encounter
CPT/HCPCS: 73110-RT; 73130-RT; 73560-LT; 99283; 99283-25; A9270-GY; J1885

== ENCOUNTER 2019-12-04 17:39 | Emergency (ER) | payer MEDICARE, MEDICAID ==
[2019-12-04] MEDS ORDERED: Acetaminophen/HYDROcodone 325-5 MG Tab PO ONE (17:40)
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
[2019-12-04 18:27] VITALS: BP 130/67; PULSE 85
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
== END 2019-12-04 19:36 | disposition home or self-care (01) ==
LOC: FB.ED 17:39
DX: S30.0XXA Contusion of lower back and pelvis, initial encounter (principal); S20.212A Contusion of left front wall of thorax, initial encounter; E78.00 Pure hypercholesterolemia, unspecified; F41.9 Anxiety disorder, unspecified; F32.9 Major depressive disorder, single episode, unspecified; F17.200 Nicotine dependence, unspecified, uncomplicated; I10 Essential (primary) hypertension; E66.9 Obesity, unspecified; Z68.41 Body mass index [BMI] 40.0-44.9, adult; E11.9 Type 2 diabetes mellitus without complications; Z79.84 Long term (current) use of oral hypoglycemic drugs; Z79.899 Other long term (current) drug therapy; Y04.8XXA Assault by other bodily force, initial encounter; Y92.410 Unspecified street and highway as the place of occurrence of the external cause
CPT/HCPCS: 71101-LT; 72170; 99285-25; A9270-GY

== ENCOUNTER 2020-04-28 21:57 | Emergency (ER) | payer MEDICAID, MEDICARE ==
[2020-04-28] MEDS ORDERED: Sodium Chloride 0.9% 1,000 ML IV ONE (23:11)
[2020-04-28] MEDS ORDERED: Sodium Chloride 0.9% 10 ML Syringe FLUSH PRN (23:11)
--- NOTE | 2020-04-28 23:16 | EDM.PDOC ---
ED HPI GENERAL MEDICAL PROBLEM - General Chief Complaint: General Stated Complaint: DIZZINESS Time Seen by Provider: 04/28/20 23:11 Source of Information: Reports: Patient History Limitations: Reports: No Limitations - History of Present Illness INITIAL COMMENTS - FREE TEXT/NARRATIVE: Presents with feeling lightheaded, blurred vision, and tingling to hands bilaterally, onset after taking a walk 1 hour ago. He ate normally today, but has not checked his blood sugar. PMHx significant for T2DM, anxiety, and HTN. 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 Denies chest pain or SOB. No prior history of CAD. Duration: Hour(s): (1) - Related Data Allergies Allergy/AdvReac Type Severity Reaction Status Date / Time .Cannot Remember Allergy Cannot Uncoded 12/04/19 18:31 Remember Home Meds: Home Meds Lisinopril 20 mg PO DAILY 06/13/18 [History] metFORMIN [Glucophage XR] 1,000 mg PO BIDMEALS 06/13/18 [History] ALPRAZolam 2 mg PO TID PRN 11/16/18 [History] Atenolol/Chlorthalidone [Atenolol-Chlorthalidone 100-25] 1 tab PO DAILY 11/16/18 [History] Gabapentin [Neurontin] 600 mg PO BID PRN 11/16/18 [History] atorvaSTATin Calcium [Atorvastatin Calcium] 20 mg PO DAILY 11/16/18 [History] Hydrocodone/Acetaminophen [[place] 5-325 Tablet] 1 - 2 tab PO Q6H PRN #8 tablet 12/04/19 [Rx] Past Medical History HEENT History: Reports: Impaired Vision Other HEENT History: left eye blind Cardiovascular History: Reports: High Cholesterol, Hypertension Musculoskeletal History: Reports: Back Pain, Chronic Psychiatric History: Reports: Anxiety, Depression, Panic Attack Endocrine/Metabolic History: Reports: Diabetes, Type II, Obesity/BMI 30+ - Past Surgical History Other Surgical History Comment: No previous surgeries. 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 Respiratory: Reports: Cough ED EXAM, GENERAL - Physical Exam Exam: See Below Exam Limited By: No Limitations General Appearance: Alert, WD/WN, No Apparent Distress Eye Exam: Bilateral Eye: EOMI, PERRL Ears: Normal External Exam Nose: Normal Inspection Throat/Mouth: Normal Oropharynx, No Airway Compromise Head: Atraumatic, Normocephalic Neck: Supple Respiratory/Chest: No Respiratory Distress, Lungs Clear, Normal Breath Sounds Cardiovascular: Regular Rate, Rhythm, No Murmur GI/Abdominal: No Distention Back Exam: Full Range of Motion Extremities: Normal Inspection, Normal Range of Motion Neurological: Alert, Oriented, Normal Cognition, No Motor/Sensory Deficits Psychiatric: Normal Affect, Normal Mood Skin Exam: Warm, Dry, Intact EKG INTERPRETATION EKG Date: 04/29/20 Time: 00:10 Rhythm: NSR Rate (Beats/Min): 62 [place]: Normal P-Wave: Present QRS: Other (LVH) ST-T: Normal QT: Normal Comparison: No Change (03/20/19) Course - Vital Signs Last Recorded V/S: Last Vital Signs Temp 37.0 C 04/28/20 22:22 Pulse 79 04/28/20 22:22 Resp 18 04/28/20 22:22 BP 153/94 H 04/28/20 22:22 Pulse Ox 96 04/28/20 22:22 - Orders/Labs/Meds Orders: Active Orders 24 hr Category Date Time Status Accu Check [Blood Glucose Check, Bedside] [RC] ONETIME Care 04/28/20 23:10 Active EKG Documentation Completion [RC] ASDIRECTED Care 04/28/20 23:10 Active Sodium Chloride 0.9% [Saline Flush] Med 04/28/20 23:11 Active 10 ml FLUSH ASDIRECTED PRN Saline Lock Insert [OM.PC] Routine Oth 04/28/20 23:11 Ordered EKG 12 Lead [EK] Stat Ther 04/28/20 23:10 Ordered Medication Orders Sodium Chloride (Saline Flush) 10 ml FLUSH ASDIRECTED PRN PRN Reason: Keep Vein Open Labs: Laboratory Tests 06/21/20 06/21/20 06/21/20 Range/Units 23:14 23:25 23:25 WBC 10.2 (4.5-12.0) X10-3/uL RBC 5.77 H (4.30-5.75) x10(6)uL Hgb 17.1 (13.5-17.8) g/dL Hct 51.7 H (30.0-51.3) % MCV 89.6 (80-96) fL MCH 29.7 (27.7-33.6) pg MCHC 33.1 (32.2-35.4) g/dL RDW 12.8 (11.5-15.5) % Plt Count 225 (125-369) X10(3)uL MPV 8.8 (7.4-10.4) fL Neut % (Auto) 53.5 (46-82) % Lymph % (Auto) 35.2 (13-37) % [place] % (Auto) 6.0 (4-12) % Eos % (Auto) 5 (1.0-5.0) % Baso % (Auto) 1 (0-2) % Neut # (Auto) 5.4 (1.6-8.3) # Lymph # (Auto) 3.6 (0.6-5.0) # [place] # (Auto) 0.6 (0.0-1.3) # Eos # (Auto) 0.5 (0.0-0.8) # Baso # (Auto) 0.1 (0.0-0.2) # Sodium 142 (135-145) mmol/L Potassium 3.5 (3.5-5.3) mmol/L Chloride 104 (100-110) mmol/L Carbon Dioxide 29 (21-32) mmol/L BUN 9 (7-18) mg/dL Creatinine 0.9 (0.70-1.30) mg/dL Est Cr Clr Drug Dosing TNP Estimated GFR (MDRD) > 60 (>60) BUN/Creatinine Ratio 10.0 (9-20) Glucose 114 (80-116) mg/dL POC Glucose 104 D (80-116) mg/dL Hemoglobin A1c (<5.7) % Calcium 9.5 (8.6-10.2) mg/dL Total Bilirubin 0.5 (0.1-1.3) mg/dL AST 28 H D (5-25) IU/L ALT 55 H D (12-36) U/L Alkaline Phosphatase 145 H (56-112) IU/L Troponin I (4.0-60.3) pg/mL Total Protein 7.6 (6.0-8.0) g/dL Albumin 4.2 (3.5-5.2) g/dL Globulin 3.4 g/dL Albumin/Globulin Ratio 1.2 Urine Color (YELLOW) Urine Appearance (CLEAR) Urine pH (5.0-6.5) Ur Specific [place] (1.010-1.025) Urine Protein (NEGATIVE) mg/dL Urine Glucose (UA) (NORMAL) mg/dL Urine Ketones (NEGATIVE) mg/dL Urine Occult Blood (NEGATIVE) Urine Nitrite (NEGATIVE) Urine Bilirubin (NEGATIVE) Urine Urobilinogen (NEGATIVE) mg/dL Ur Leukocyte Esterase (NEGATIVE) Urine RBC (0-5) Urine WBC (0-5) Ur Squamous Epith Cells (NS,R,O) Urine Bacteria (NS) 04/28/20 04/28/20 04/28/20 Range/Units 23:25 23:25 23:45 WBC (4.5-12.0) X10-3/uL RBC (4.30-5.75) x10(6)uL Hgb (13.5-17.8) g/dL Hct (30.0-51.3) % MCV (80-96) fL MCH (27.7-33.6) pg MCHC (32.2-35.4) g/dL RDW (11.5-15.5) % Plt Count (125-369) X10(3)uL MPV (7.4-10.4) fL Neut % (Auto) (46-82) % Lymph % (Auto) (13-37) % [place] % (Auto) (4-12) % Eos % (Auto) (1.0-5.0) % Baso % (Auto) (0-2) % Neut # (Auto) (1.6-8.3) # Lymph # (Auto) (0.6-5.0) # [place] # (Auto) (0.0-1.3) # Eos # (Auto) (0.0-0.8) # Baso # (Auto) (0.0-0.2) # Sodium (135-145) mmol/L Potassium (3.5-5.3) mmol/L Chloride (100-110) mmol/L Carbon Dioxide (21-32) mmol/L BUN (7-18) mg/dL Creatinine (0.70-1.30) mg/dL Est Cr Clr Drug Dosing Estimated GFR (MDRD) (>60) BUN/Creatinine Ratio (9-20) Glucose (80-116) mg/dL POC Glucose (80-116) mg/dL Hemoglobin A1c 6.7 H (<5.7) % Calcium (8.6-10.2) mg/dL Total Bilirubin (0.1-1.3) mg/dL AST (5-25) IU/L ALT (12-36) U/L Alkaline Phosphatase (56-112) IU/L Troponin I 9.0 (4.0-60.3) pg/mL Total Protein (6.0-8.0) g/dL Albumin (3.5-5.2) g/dL Globulin g/dL Albumin/Globulin Ratio Urine Color Yellow (YELLOW) Urine Appearance Clear (CLEAR) Urine pH 5.0 (5.0-6.5) Ur Specific [place] 1.030 H (1.010-1.025) Urine Protein Negative (NEGATIVE) mg/dL Urine Glucose (UA) 100 H (NORMAL) mg/dL Urine Ketones Negative (NEGATIVE) mg/dL Urine Occult Blood Negative (NEGATIVE) Urine Nitrite Negative (NEGATIVE) Urine Bilirubin Negative (NEGATIVE) Urine Urobilinogen Normal (NEGATIVE) mg/dL Ur Leukocyte Esterase Negative (NEGATIVE) Urine RBC 0-5 (0-5) Urine WBC 0-5 (0-5) Ur Squamous Epith Cells Rare (NS,R,O) Urine Bacteria Few H (NS) Meds: Medications Generic Name Dose Route Start Last Admin Trade Name Freq PRN Reason Stop Dose Admin Sodium Chloride 10 ml 04/28/20 23:11 Saline Flush FLUSH ASDIRECTED PRN Keep Vein Open Discontinued Medications Generic Name Dose Route Start Last Admin Trade Name Freq PRN Reason Stop Dose Admin Sodium Chloride 1,000 mls @ 999 mls/hr 04/28/20 23:11 04/28/20 23:47 Normal Saline IV 04/29/20 00:11 999 mls/hr .BOLUS ONE Administration - Re-Assessments/Exams Free Text/Narrative Re-Assessment/Exam: 04/29/20 00:16 Accucheck: 104. Symptoms improved after PO orange juice. Departure - Departure Time of Disposition: 00:22 Disposition: Home, Self-Care 01 Condition: Good Clinical Impression: Generalized weakness - Discharge Information *PRESCRIPTION DRUG MONITORING PROGRAM REVIEWED*: No *COPY OF PRESCRIPTION DRUG MONITORING REPORT IN PATIENT CELENA: Not Applicable Instructions: Type 2 Diabetes Mellitus, Diagnosis, Adult, Hypoglycemia Referrals: Dion Marquez MD [Primary Care Provider] - 1 Day Forms: ED Department Discharge Additional Instructions: Follow up with Dr. Marquez in 1-2 days. Check blood sugars at least twice a day. Return to the ER as needed. Sepsis Event Note (ED) - Focused Exam Vital Signs: Vital Signs Temp Pulse Resp BP Pulse Ox 04/28/20 22:22 37.0 C 79 18 153/94 H 96 - My Orders Last 24 Hours: My Active Orders 04/28/20 23:10 Accu Check [Blood Glucose Check, Bedside] [RC] ONETIME EKG Documentation Completion [RC] ASDIRECTED EKG 12 Lead [EK] Stat 04/28/20 23:11 Sodium Chloride 0.9% [Saline Flush] 10 ml FLUSH ASDIRECTED PRN Saline Lock Insert [OM.PC] Routine - Assessment/Plan Last 24 Hours: My Active Orders 04/28/20 23:10 Accu Check [Blood Glucose Check, Bedside] [RC] ONETIME EKG Documentation Completion [RC] ASDIRECTED EKG 12 Lead [EK] Stat 04/28/20 23:11 Sodium Chloride 0.9% [Saline Flush] 10 ml FLUSH ASDIRECTED PRN Saline Lock Insert [OM.PC] Routine
[2020-04-28 23:50] LABS: HEMOGLOBIN A1C 6.7 % (<5.7)
[2020-04-29 19:01] VITALS: BP 160/94; PULSE 58
== END 2020-04-29 00:35 | disposition home or self-care (01) ==
LOC: FB.ED 21:57
DX: R53.1 Weakness (principal); I10 Essential (primary) hypertension; E11.9 Type 2 diabetes mellitus without complications; E78.00 Pure hypercholesterolemia, unspecified; F41.9 Anxiety disorder, unspecified; F32.9 Major depressive disorder, single episode, unspecified; E66.9 Obesity, unspecified; Z68.41 Body mass index [BMI] 40.0-44.9, adult; F17.210 Nicotine dependence, cigarettes, uncomplicated; Z79.84 Long term (current) use of oral hypoglycemic drugs; Z79.899 Other long term (current) drug therapy
CPT/HCPCS: 36415; 80053; 81001; 82962; 83036; 84484; 85025; 93005; 93010; 96360; 99283; 99284; A9270; J7030

== ENCOUNTER 2020-04-29 18:17 | Emergency (ER) | payer MEDICARE ==
[2020-04-29 18:50] VITALS: PULSE 68
--- NOTE | 2020-04-29 19:23 | EDM.PDOC ---
ED HPI GENERAL MEDICAL PROBLEM - General Chief Complaint: Diabetic Complaint Stated Complaint: weakness and emotional Time Seen by Provider: 04/29/20 18:50 Source of Information: Reports: Patient History Limitations: Reports: No Limitations - History of Present Illness INITIAL COMMENTS - FREE TEXT/NARRATIVE: Patient presented to the ED because of weakness and sadness which started 1 week ago when he quit taking his xanax because he thinks it's addicting. He is in emotional roller coaster,he lost appetite, couldn't sleep etc. He was seen in the ED yesterday and labs were all normal according to him. - Related Data Allergies Allergy/AdvReac Type Severity Reaction Status Date / Time .Cannot Remember Allergy Cannot Uncoded 04/30/20 08:54 Remember Home Meds: Home Meds Lisinopril 20 mg PO DAILY 06/13/18 [History] metFORMIN [Glucophage XR] 1,000 mg PO BIDMEALS 06/13/18 [History] ALPRAZolam 2 mg PO TID PRN 11/16/18 [History] atorvaSTATin Calcium [Atorvastatin Calcium] 20 mg PO DAILY 11/16/18 [History] Dapagliflozin Propanediol [Farxiga] 5 mg PO DAILY 04/29/20 [History] Mirtazapine 30 mg PO DAILY #30 tablet 04/29/20 [Rx] hydrOXYzine pamoate [Vistaril] 50 mg PO Q6H #30 cap 04/29/20 [Rx] Past Medical History HEENT History: Reports: Impaired Vision Other HEENT History: left eye blind Cardiovascular History: Reports: High Cholesterol, Hypertension Musculoskeletal History: Reports: Back Pain, Chronic Psychiatric History: Reports: Anxiety, Depression, Panic Attack Endocrine/Metabolic History: Reports: Diabetes, Type II, Obesity/BMI 30+ - Past Surgical History Other Surgical History Comment: No previous surgeries. 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) ED ROS GENERAL - Review of Systems Review Of Systems: See Below Constitutional: Reports: No Symptoms HEENT: Reports: No Symptoms Respiratory: Reports: No Symptoms Cardiovascular: Reports: No Symptoms Endocrine: Reports: No Symptoms GI/Abdominal: Reports: No Symptoms : Reports: No Symptoms Musculoskeletal: Reports: No Symptoms Skin: Reports: No Symptoms Neurological: Reports: No Symptoms Psychiatric: Reports: Anxiety, Depression, Mood Lability Hematologic/Lymphatic: Reports: No Symptoms Immunologic: Reports: No Symptoms ED EXAM GENERAL NO PERIP PULSE - Physical Exam Exam: See Below Exam Limited By: No Limitations General Appearance: Alert, No Apparent Distress Ears: Normal External Exam Nose: Normal Inspection Throat/Mouth: Normal Inspection Head: Atraumatic Neck: Normal Inspection Respiratory/Chest: No Respiratory Distress Cardiovascular: Normal Peripheral Pulses GI/Abdominal: Normal Bowel Sounds Back Exam: Normal Inspection Extremities: Normal Inspection Psychiatric: Anxious, Depressed Mood, Flat Affect, Tearful Course - Vital Signs Text/Narrative:: Vistaril 50 mg po x1 Mirtazipine 39 mg po x1 Last Recorded V/S: Last Vital Signs Temp 36.9 C 04/29/20 18:49 Pulse 68 04/29/20 18:49 Resp 18 04/29/20 20:07 BP 153/88 H 04/29/20 20:07 Pulse Ox 100 04/29/20 20:07 - Orders/Labs/Meds Labs: Laboratory Tests 04/29/20 Range/Units 18:57 POC Glucose 86 (80-116) mg/dL Meds: Medications Discontinued Medications Generic Name Dose Route Start Last Admin Trade Name Freq PRN Reason Stop Dose Admin Hydroxyzine Pamoate 50 mg 04/29/20 19:28 04/29/20 19:49 Vistaril PO 50 mg ONETIME PRN Administration Anxiety Mirtazapine 30 mg 04/29/20 19:28 04/29/20 19:58 Remeron PO 04/29/20 19:29 30 mg NOW STA Administration Departure - Departure Time of Disposition: 19:20 Disposition: Home, Self-Care 01 Condition: Good Clinical Impression: Anxiety - Discharge Information Prescriptions: Mirtazapine 30 mg PO DAILY #30 tablet hydrOXYzine pamoate [Vistaril] 50 mg PO Q6H #30 cap Instructions: Generalized Anxiety Disorder, Adult Referrals: Dion Marquez MD [Primary Care Provider] - Forms: ED Department Discharge Additional Instructions: Please read discharge instructions on anxiety and depression Gradually wean off your alprazolam/xanax-1 tablet once daily for 3 days, then 1/2 tablet for 3 days Take remeron/mirtazapine 30 mg at bedtime Vistaril/hydroxyzine, take 1 tablet every 6 hours as needed for anxiety Follow up with your doctor as scheduled Sepsis Event Note (ED) - Evaluation Sepsis Screening Result: No Definite Risk
[2020-04-29] MEDS ORDERED: Mirtazapine 30 MG Tab PO STA (19:28)
[2020-04-29 20:10] VITALS: BP 153/88
== END 2020-04-29 20:15 | disposition home or self-care (01) ==
LOC: FB.ED 18:17
DX: F41.9 Anxiety disorder, unspecified (principal); E78.00 Pure hypercholesterolemia, unspecified; I10 Essential (primary) hypertension; F32.9 Major depressive disorder, single episode, unspecified; E11.9 Type 2 diabetes mellitus without complications; E66.9 Obesity, unspecified; Z68.41 Body mass index [BMI] 40.0-44.9, adult; Z79.899 Other long term (current) drug therapy; Z79.84 Long term (current) use of oral hypoglycemic drugs
CPT/HCPCS: 82962; 99284; A9270; 99283

== ENCOUNTER 2020-10-14 17:03 | Emergency (ER) | payer MEDICAID, MEDICARE ==
--- NOTE | 2020-10-14 18:17 | EDM.PDOC ---
ED HPI GENERAL MEDICAL PROBLEM - General Chief Complaint: Diabetic Complaint Stated Complaint: HB HIGH Time Seen by Provider: 10/14/20 17:50 Source of Information: Reports: Patient History Limitations: Reports: No Limitations - History of Present Illness INITIAL COMMENTS - FREE TEXT/NARRATIVE: pt presents with not feeling well since yesterday , states he feels as if BS is either elelvated or too low Does not have monitor to check BS denies any fever or chills no cough no abd pain , no diarrhea. Onset: Gradual Onset Date: 10/13/20 Duration: Day(s): (2), Getting Worse Location: Reports: Generalized Quality: Reports: Ache, Dull Severity: Mild Improves with: Reports: None Worsens with: Reports: None Context: Reports: Activity Associated Symptoms: Reports: Headaches, Malaise. Denies: Cough, Diaphoresis, Fever/Chills - Related Data Allergies Allergy/AdvReac Type Severity Reaction Status Date / Time .Cannot Remember Allergy Cannot Uncoded 04/30/20 08:54 Remember Home Meds: Home Meds Lisinopril 20 mg PO DAILY 06/13/18 [History] metFORMIN [Glucophage XR] 1,000 mg PO BIDMEALS 06/13/18 [History] ALPRAZolam 2 mg PO TID PRN 11/16/18 [History] atorvaSTATin Calcium [Atorvastatin Calcium] 20 mg PO DAILY 11/16/18 [History] Dapagliflozin Propanediol [Farxiga] 5 mg PO DAILY 04/29/20 [History] Mirtazapine 30 mg PO DAILY #30 tablet 04/29/20 [Rx] hydrOXYzine pamoate [Vistaril] 50 mg PO Q6H #30 cap 04/29/20 [Rx] Past Medical History HEENT History: Reports: Impaired Vision Other HEENT History: left eye blind Cardiovascular History: Reports: High Cholesterol, Hypertension Musculoskeletal History: Reports: Back Pain, Chronic Psychiatric History: Reports: Anxiety, Depression, Panic Attack Endocrine/Metabolic History: Reports: Diabetes, Type II, Obesity/BMI 30+ - Past Surgical History Other Surgical History Comment: No previous surgeries. 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) ED ROS GENERAL - Review of Systems Review Of Systems: See Below Constitutional: Reports: No Symptoms HEENT: Reports: No Symptoms Respiratory: Reports: No Symptoms Cardiovascular: Reports: No Symptoms Endocrine: Reports: No Symptoms GI/Abdominal: Reports: No Symptoms : Reports: No Symptoms Musculoskeletal: Reports: No Symptoms Skin: Reports: No Symptoms Neurological: Reports: No Symptoms ED EXAM GENERAL NO PERIP PULSE - Physical Exam Exam: See Below Exam Limited By: No Limitations General Appearance: Alert, WD/WN, No Apparent Distress Eye Exam: Bilateral Eye: EOMI Ears: Normal External Exam Nose: Normal Inspection Throat/Mouth: Normal Inspection, Normal Oropharynx Head: Atraumatic, Normocephalic Neck: Supple, Non-Tender Respiratory/Chest: No Respiratory Distress, Lungs Clear GI/Abdominal: Soft, Non-Tender (Male) Exam: Normal Inspection Back Exam: Normal Inspection, Full Range of Motion Extremities: Normal Inspection, Normal Range of Motion Neurological: Alert, Oriented, CN II-XII Intact Psychiatric: Normal Affect, Normal Mood Lymphatic: No Adenopathy Course - Vital Signs Last Recorded V/S: Last Vital Signs Temp 36.4 C 10/14/20 20:10 Pulse 101 H 10/14/20 20:10 Resp 18 10/14/20 20:10 BP 164/101 H 10/14/20 20:10 Pulse Ox 98 10/14/20 20:10 - Orders/Labs/Meds Orders: Active Orders 24 hr Category Date Time Status UA W/MICROSCOPIC [URIN] Stat Lab 10/14/20 18:07 Ordered Labs: Laboratory Tests 10/14/20 10/14/20 10/14/20 Range/Units 18:06 18:37 18:37 WBC 12.7 H (3.2-10.1) x10-3/uL RBC 5.96 H (3.90-5.90) x10(6)uL Hgb 17.6 (12.9-17.7) g/dL Hct 53.0 H (38.3-50.1) % MCV 88.9 (80.8-98.7) fL MCH 29.6 (27.0-33.3) pg MCHC 33.3 (28.7-35.3) g/dL RDW 13.2 (12.4-15.0) % Plt Count 257 (117-477) x10(3)uL MPV 8.2 (6.7-11.0) fL Neut % (Auto) 69.9 (40.3-71.8) % Lymph % (Auto) 22.5 (15.8-45.3) % [place] % (Auto) 4.8 L (5.5-15.2) % Eos % (Auto) 2.1 (0.1-6.8) % Baso % (Auto) 0.7 (0.3-3.8) % Neut # (Auto) 8.9 H (1.7-6.9) x10-3/uL Lymph # (Auto) 2.8 (0.5-4.5) x10-3/uL [place] # (Auto) 0.6 (0.0-1.2) x10-3/uL Eos # (Auto) 0.3 (0.0-0.6) x10-3/uL Baso # (Auto) 0.1 (0.0-0.3) x10-3/uL Sodium 140 (135-145) mmol/L Potassium 4.0 (3.5-5.3) mmol/L Chloride 101 (100-110) mmol/L Carbon Dioxide 27 (21-32) mmol/L BUN 13 (7-18) mg/dL Creatinine 1.0 (0.70-1.30) mg/dL Est Cr Clr Drug Dosing 96.90 mL/min Estimated GFR (MDRD) > 60 (>60) BUN/Creatinine Ratio 13.0 (9-20) Glucose 142 H (80-116) mg/dL POC Glucose 125 H (74-100) mg/dL Calcium 9.3 (8.6-10.2) mg/dL Total Bilirubin 0.4 (0.1-1.3) mg/dL AST 29 H (5-25) IU/L ALT 67 H D (12-36) U/L Alkaline Phosphatase 128 H (56-112) IU/L C-Reactive Protein (0.5-0.9) mg/dL Total Protein 8.5 H (6.0-8.0) g/dL Albumin 4.3 (3.5-5.2) g/dL Globulin 4.2 g/dL Albumin/Globulin Ratio 1.0 10/14/20 Range/Units 18:37 WBC (3.2-10.1) x10-3/uL RBC (3.90-5.90) x10(6)uL Hgb (12.9-17.7) g/dL Hct (38.3-50.1) % MCV (80.8-98.7) fL MCH (27.0-33.3) pg MCHC (28.7-35.3) g/dL RDW (12.4-15.0) % Plt Count (117-477) x10(3)uL MPV (6.7-11.0) fL Neut % (Auto) (40.3-71.8) % Lymph % (Auto) (15.8-45.3) % [place] % (Auto) (5.5-15.2) % Eos % (Auto) (0.1-6.8) % Baso % (Auto) (0.3-3.8) % Neut # (Auto) (1.7-6.9) x10-3/uL Lymph # (Auto) (0.5-4.5) x10-3/uL [place] # (Auto) (0.0-1.2) x10-3/uL Eos # (Auto) (0.0-0.6) x10-3/uL Baso # (Auto) (0.0-0.3) x10-3/uL Sodium (135-145) mmol/L Potassium (3.5-5.3) mmol/L Chloride (100-110) mmol/L Carbon Dioxide (21-32) mmol/L BUN (7-18) mg/dL Creatinine (0.70-1.30) mg/dL Est Cr Clr Drug Dosing mL/min Estimated GFR (MDRD) (>60) BUN/Creatinine Ratio (9-20) Glucose (80-116) mg/dL POC Glucose (74-100) mg/dL Calcium (8.6-10.2) mg/dL Total Bilirubin (0.1-1.3) mg/dL AST (5-25) IU/L ALT (12-36) U/L Alkaline Phosphatase (56-112) IU/L C-Reactive Protein 0.4 L (0.5-0.9) mg/dL Total Protein (6.0-8.0) g/dL Albumin (3.5-5.2) g/dL Globulin g/dL Albumin/Globulin Ratio Meds: Medications Discontinued Medications Generic Name Dose Route Start Last Admin Trade Name Tia PRN Reason Stop Dose Admin Hydralazine HCl 50 mg 10/14/20 18:28 10/14/20 19:29 Apresoline PO 10/14/20 18:29 Not Given NOW STA Hydralazine HCl Confirm 10/14/20 19:21 10/14/20 19:30 Apresoline Administered 10/14/20 19:22 Not Given Dose 50 mg .ROUTE .STK-MED ONE Hydralazine HCl 50 mg 10/14/20 19:22 10/14/20 19:23 Apresoline PO 10/14/20 19:23 50 mg ONETIME ONE Administration - Re-Assessments/Exams Free Text/Narrative Re-Assessment/Exam: 10/14/20 18:08 accucheck done: 127 10/14/20 18:20 BP noted to be elevated labs ordered , will treat HTN 10/14/20 20:07 pt given dose of Hydralalzine and BP recheck did initally increase then it decreased to Departure - Departure Time of Disposition: 20:15 Disposition: Home, Self-Care 01 Condition: Fair Clinical Impression: Hypertension, URI (upper respiratory infection) - Discharge Information *PRESCRIPTION DRUG MONITORING PROGRAM REVIEWED*: Not Applicable *COPY OF PRESCRIPTION DRUG MONITORING REPORT IN PATIENT CELENA: Not Applicable Instructions: Hypertension, Adult, Hyct-pm-[id number], Managing Your Hypertension Referrals: Dion Marquez MD [Primary Care Provider] - Forms: ED Department Discharge Additional Instructions: Await COVID test results Follow up with your PCP as needed Sepsis Event Note (ED) - Evaluation Sepsis Screening Result: No Definite Risk - Focused Exam Vital Signs: Vital Signs Temp Pulse Resp BP BP Pulse Ox 10/14/20 20:10 36.4 C 101 H 18 164/101 H 98 10/14/20 19:23 181/103 H 10/14/20 18:07 103 H 16 165/89 H 98 10/14/20 17:45 36.2 C 111 H 18 198/119 H 97 - My Orders Last 24 Hours: My Active Orders 10/14/20 18:07 UA W/MICROSCOPIC [URIN] Stat - Assessment/Plan Last 24 Hours: My Active Orders 10/14/20 18:07 UA W/MICROSCOPIC [URIN] Stat
[2020-10-14] MEDS ORDERED: hydrALAZINE 50 MG Tab PO STA (18:28)
[2020-10-14] MEDS ORDERED: hydrALAZINE 25 MG Tab ONE (19:21)
[2020-10-14] MEDS ORDERED: hydrALAZINE 25 MG Tab PO ONE (19:22)
[2020-10-14 20:20] VITALS: BP 164/101; PULSE 101
== END 2020-10-14 20:15 | disposition home or self-care (01) ==
LOC: FB.ED 17:03
DX: I10 Essential (primary) hypertension (principal); J06.9 Acute upper respiratory infection, unspecified; E78.00 Pure hypercholesterolemia, unspecified; E11.9 Type 2 diabetes mellitus without complications; F41.9 Anxiety disorder, unspecified; E66.9 Obesity, unspecified; F17.210 Nicotine dependence, cigarettes, uncomplicated; Z68.41 Body mass index [BMI] 40.0-44.9, adult; Z79.84 Long term (current) use of oral hypoglycemic drugs; Z79.899 Other long term (current) drug therapy
CPT/HCPCS: 36415; 80053; 82962; 85025; 86140; 99283; A9270

== ENCOUNTER 2020-10-28 21:43 | Emergency (ER) | payer MEDICARE ==
[2020-10-28] MEDS ORDERED: Metoprolol Tartrate 50 MG Tab PO ONE (22:02)
--- NOTE | 2020-10-28 22:09 | EDM.PDOC ---
ED HPI GENERAL MEDICAL PROBLEM - General Chief Complaint: Cardiovascular Problem Stated Complaint: HIGH BLOOD PRESSURE Time Seen by Provider: 10/28/20 22:04 Source of Information: Reports: Patient, Old Records, RN History Limitations: Reports: No Limitations - History of Present Illness INITIAL COMMENTS - FREE TEXT/NARRATIVE: 40 yo male with a pHx of HTN presents with persistent HTN. [place] at home tonight like his heart was pounding out of his chest. Has an appt to see Dr. Singh tomorrow. Was seen here for a similar complaint a couple weeks ago and had his BP lowered in the ER with hydralazine, but then he was sent home on his usual meds only. Has had a hard time getting an appt with his primary due to impending assisted. Has been slowly losing weight by watching his diet. Feels his lisinopril 20 mg qd may not be enough for him. 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: Reports: Other (see below) (usual meds only) - Related Data Allergies Allergy/AdvReac Type Severity Reaction Status Date / Time pseudoephedrine Allergy Cannot Verified 10/28/20 22:48 [From Anayeli] Remember Home Meds: Home Meds Lisinopril 20 mg PO DAILY 06/13/18 [History] metFORMIN [Glucophage XR] 1,000 mg PO BIDMEALS 06/13/18 [History] atorvaSTATin Calcium [Atorvastatin Calcium] 20 mg PO DAILY 11/16/18 [History] Dapagliflozin Propanediol [Farxiga] 5 mg PO DAILY 04/29/20 [History] Metoprolol Succinate [Toprol XL 100mg] 100 mg PO QAM #30 tab.er 10/28/20 [Rx] Past Medical History HEENT History: Reports: Impaired Vision Other HEENT History: left eye blind Cardiovascular History: Reports: High Cholesterol, Hypertension Musculoskeletal History: Reports: Back Pain, Chronic Psychiatric History: Reports: Anxiety, Depression, Panic Attack Endocrine/Metabolic History: Reports: Diabetes, Type II, Obesity/BMI 30+ - Past Surgical History Other Surgical History Comment: No previous surgeries. 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) ED ROS GENERAL - Review of Systems Review Of Systems: See Below Constitutional: Reports: No Symptoms HEENT: Reports: No Symptoms Respiratory: Reports: No Symptoms Cardiovascular: Reports: Palpitations (heart pounding) GI/Abdominal: Reports: No Symptoms : Reports: No Symptoms Musculoskeletal: Reports: No Symptoms Skin: Reports: No Symptoms Neurological: Reports: No Symptoms Psychiatric: Reports: Anxiety ED EXAM, GENERAL - Physical Exam Exam: See Below Exam Limited By: No Limitations General Appearance: Alert, WD/WN, No Apparent Distress, Obese Eye Exam: Bilateral Eye: Normal Inspection Ears: Normal External Exam, Normal Canal, Hearing Grossly Normal Ear Exam: Right Ear: TM Perforation, Bilateral Ear: Auricle Normal, Canal Normal Nose: Normal Inspection, No Blood Throat/Mouth: Normal Inspection, Normal Lips, Normal Oropharynx, Normal Voice, No Airway Compromise Head: Atraumatic, Normocephalic Neck: Normal Inspection Respiratory/Chest: No Respiratory Distress, Lungs Clear, Normal Breath Sounds, No Accessory Muscle Use Cardiovascular: Regular Rate, Rhythm, No Edema, Tachycardia GI/Abdominal: Normal Bowel Sounds, Soft, Non-Tender, No Distention Back Exam: Normal Inspection. No: CVA Tenderness (R), CVA Tenderness (L) Extremities: Normal Inspection, Normal Range of Motion, Non-Tender, No Pedal Edema Neurological: Alert, Oriented, CN II-XII Intact, Normal Cognition, No Motor/Sensory Deficits Psychiatric: Normal Affect, Normal Mood, Anxious Skin Exam: Warm, Dry, Intact, Normal Color, No Rash #1 Interpretation EKG Date: 10/28/20 Time: 22:00 Rhythm: NSR Rate (Beats/Min): 116 [place]: RAD-Right [place] Deviation P-Wave: Present QRS: Normal ST-T: Normal QT: Normal Comparison: Change From Previous EKG (Rate has increased since last EKG.) Course - Vital Signs Last Recorded V/S: Last Vital Signs Temp 36.6 C 10/28/20 21:50 Pulse 115 H 10/28/20 22:15 Resp 18 10/28/20 21:50 BP 178/103 H 10/28/20 22:15 Pulse Ox 100 10/28/20 21:50 - Orders/Labs/Meds Orders: Active Orders 24 hr Category Date Time Status EKG Documentation Completion [RC] ASDIRECTED Care 10/28/20 22:05 Active EKG 12 Lead [EK] Routine Ther 10/28/20 22:05 Ordered Labs: Laboratory Tests 10/28/20 10/28/20 Range/Units 22:10 22:10 Troponin I 6.6 (4.0-60.3) pg/mL TSH, Ultra Sensitive 0.65 (0.36-3.74) IU/mL Meds: Medications Discontinued Medications Generic Name Dose Route Start Last Admin Trade Name Freq PRN Reason Stop Dose Admin Metoprolol Tartrate 50 mg 10/28/20 22:02 10/28/20 22:15 Lopressor PO 10/28/20 22:03 50 mg ONETIME ONE Administration - Re-Assessments/Exams Free Text/Narrative Re-Assessment/Exam: 10/28/20 22:56 Feeling better after metoprolol. Departure - Departure Time of Disposition: 22:56 Disposition: Home, Self-Care 01 Condition: Good Clinical Impression: HTN (hypertension) Qualifiers: Hypertension type: essential hypertension Qualified Code(s): I10 - Essential (primary) hypertension - Discharge Information *PRESCRIPTION DRUG MONITORING PROGRAM REVIEWED*: Not Applicable *COPY OF PRESCRIPTION DRUG MONITORING REPORT IN PATIENT CELENA: Not Applicable Prescriptions: Metoprolol Succinate [Toprol XL 100mg] 100 mg PO QAM #30 tab.er Instructions: Hypertension, Adult, [id number] Referrals: Dion Marquez MD [Primary Care Provider] - Forms: ED Department Discharge Additional Instructions: Start long acting metoprolol tomorrow morning when the pharmacy opens. Keep your appt with Dr. Singh. Stay on your lisinopril. Sepsis Event Note (ED) - Focused Exam Vital Signs: Vital Signs Temp Pulse Pulse Resp BP BP Pulse Ox 10/28/20 22:15 115 H 178/103 H 10/28/20 21:50 36.6 C 115 H 18 178/103 H 100 - My Orders Last 24 Hours: My Active Orders 10/28/20 22:05 EKG Documentation Completion [RC] ASDIRECTED EKG 12 Lead [EK] Routine - Assessment/Plan Last 24 Hours: My Active Orders 10/28/20 22:05 EKG Documentation Completion [RC] ASDIRECTED EKG 12 Lead [EK] Routine
[2020-10-28 22:58] VITALS: BP 158/101; PULSE 112
== END 2020-10-28 23:10 | disposition home or self-care (01) ==
LOC: FB.ED 21:43
DX: I10 Essential (primary) hypertension (principal); E78.00 Pure hypercholesterolemia, unspecified; E11.9 Type 2 diabetes mellitus without complications; E66.9 Obesity, unspecified; Z88.8 Allergy status to other drugs, medicaments and biological substances; Z79.84 Long term (current) use of oral hypoglycemic drugs; Z79.899 Other long term (current) drug therapy; Z68.42 Body mass index [BMI] 45.0-49.9, adult
CPT/HCPCS: 36415; 84443; 84484; 93005; 99283; A9270

== ENCOUNTER 2021-09-13 09:24 | Emergency (ER) | payer MEDICARE ==
[2021-09-13] MEDS ORDERED: hydrOXYzine HCl 50 MG/ML SDV IM ONE (09:47)
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
[2021-09-13 20:04] VITALS: BP 153/103; PULSE 127
== END 2021-09-13 11:23 | disposition home or self-care (01) ==
LOC: FB.ED 09:24
DX: F41.0 Panic disorder [episodic paroxysmal anxiety] (principal); E87.6 Hypokalemia; E78.00 Pure hypercholesterolemia, unspecified; I10 Essential (primary) hypertension; E11.9 Type 2 diabetes mellitus without complications; E66.9 Obesity, unspecified; Z68.41 Body mass index [BMI] 40.0-44.9, adult; Z88.8 Allergy status to other drugs, medicaments and biological substances; Z79.84 Long term (current) use of oral hypoglycemic drugs; Z79.899 Other long term (current) drug therapy
CPT/HCPCS: 36415; 80053; 82947; 84484; 85025; 86140; 96372; 99284; J3410

== ENCOUNTER 2021-09-28 13:31 | Emergency (ER) | payer MEDICARE ==
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
[2021-09-28] MEDS ORDERED: diphenhydrAMINE 50 MG/ML SDV IM ONE (14:06)
[2021-09-28 15:36] VITALS: BP 151/117; PULSE 108
== END 2021-09-28 16:00 | disposition home or self-care (01) ==
LOC: FB.ED 13:31
DX: F41.9 Anxiety disorder, unspecified (principal); F15.129 Other stimulant abuse with intoxication, unspecified; E78.00 Pure hypercholesterolemia, unspecified; I10 Essential (primary) hypertension; E11.9 Type 2 diabetes mellitus without complications; E66.9 Obesity, unspecified; Z68.38 Body mass index [BMI] 38.0-38.9, adult; Z88.8 Allergy status to other drugs, medicaments and biological substances; Z79.84 Long term (current) use of oral hypoglycemic drugs; Z79.899 Other long term (current) drug therapy
CPT/HCPCS: 36415; 80053; 80307; 83735; 85025; 96372; 99284; J1200

== ENCOUNTER 2022-01-19 15:49 | Emergency (ER) | payer MEDICAID, MEDICARE ==
[2022-01-19 16:09] VITALS: BP 152/95; PULSE 105
== END 2022-01-19 17:30 | disposition left against medical advice (07) ==
LOC: FB.ED 15:49
DX: L03.011 Cellulitis of right finger (principal); E78.00 Pure hypercholesterolemia, unspecified; I10 Essential (primary) hypertension; E11.9 Type 2 diabetes mellitus without complications; E66.9 Obesity, unspecified; Z88.8 Allergy status to other drugs, medicaments and biological substances; Z79.899 Other long term (current) drug therapy; Z68.37 Body mass index [BMI] 37.0-37.9, adult
CPT/HCPCS: 36415; 80048; 85025; 99283

== ENCOUNTER 2022-01-20 11:51 | Emergency (ER) | payer MEDICARE ==
[2022-01-20] MEDS ORDERED: Ondansetron 4 MG Tab.DIS PO STA (12:05)
[2022-01-20] MEDS ORDERED: Sodium Chloride 0.9% 10 ML Syringe FLUSH PRN (12:18)
[2022-01-20] MEDS ORDERED: Labetalol 20 MG/4 ML Syringe IVPUSH STA (12:21)
[2022-01-20] MEDS ORDERED: Metoprolol Succinate 100 MG Tab.ER PO STA (12:48)
[2022-01-20] MEDS ORDERED: Potassium Chloride 20 MEQ Tab.ER PO STA (12:54)
[2022-01-20] MEDS ORDERED: Lisinopril 20 MG Tab PO SCH (13:00)
[2022-01-20 20:22] VITALS: BP 186/125; PULSE 126
== END 2022-01-20 15:00 | disposition home or self-care (01) ==
LOC: FB.ED 11:51
DX: T59.91XA Toxic effect of unspecified gases, fumes and vapors, accidental (unintentional), initial encounter (principal); L03.90 Cellulitis, unspecified; E87.6 Hypokalemia; I16.9 Hypertensive crisis, unspecified; E78.00 Pure hypercholesterolemia, unspecified; I10 Essential (primary) hypertension; E11.9 Type 2 diabetes mellitus without complications; E66.9 Obesity, unspecified; Z68.30 Body mass index [BMI] 30.0-30.9, adult; Z88.8 Allergy status to other drugs, medicaments and biological substances; Z79.899 Other long term (current) drug therapy; Z79.84 Long term (current) use of oral hypoglycemic drugs
CPT/HCPCS: 36415; 80048; 80307; 84484; 85025; 93005; 93010; 99283; 99284-25; A9270-GY; J3490; Q0162

== ENCOUNTER 2022-05-04 15:22 | Emergency (ER) | payer OTHER, MEDICARE ==
[2022-05-04] MEDS ORDERED: Sodium Chloride 0.9% 10 ML Syringe FLUSH PRN (15:35)
[2022-05-04] MEDS ORDERED: Ondansetron 4 MG Tab.DIS PO STA (15:41)
[2022-05-04] MEDS ORDERED: Alum Hydroxide/Mag Hydroxide 15 ML, Lidocaine 2% 15 ML PO ONE ×2 (15:41)
[2022-05-04] MEDS ORDERED: Loperamide 2 MG Cap PO ONE (15:42)
[2022-05-04 16:02] LABS: ESTIMATED GFR 98 mL/min (>60)
[2022-05-04] MEDS ORDERED: Acetaminophen 500 MG Tab PO ONE (16:36)
[2022-05-04 16:59] VITALS: BP 143/98; PULSE 76
== END 2022-05-04 16:50 | disposition home or self-care (01) ==
LOC: FB.ED 15:22
DX: K29.00 Acute gastritis without bleeding (principal); R11.2 Nausea with vomiting, unspecified; E78.00 Pure hypercholesterolemia, unspecified; I10 Essential (primary) hypertension; E11.9 Type 2 diabetes mellitus without complications; E66.9 Obesity, unspecified; Z68.29 Body mass index [BMI] 29.0-29.9, adult; Z88.8 Allergy status to other drugs, medicaments and biological substances
CPT/HCPCS: 36415; 80048; 84484; 93005; 93010; 99282; 99285; A9270-GY; Q0162

== ENCOUNTER 2022-08-08 12:12 | Emergency (ER) | payer MEDICARE, MEDICAID, OTHER ==
[2022-08-08] MEDS ORDERED: Acetaminophen 500 MG Tab PO ONE (12:24)
[2022-08-08 13:05] LABS: ESTIMATED GFR 111 mL/min (>60)
[2022-08-08 14:49] VITALS: BP 140/79; PULSE 67
== END 2022-08-08 13:57 | disposition home or self-care (01) ==
LOC: FB.ED 12:12
DX: B34.9 Viral infection, unspecified (principal); E78.00 Pure hypercholesterolemia, unspecified; I10 Essential (primary) hypertension; Z88.8 Allergy status to other drugs, medicaments and biological substances; Z79.84 Long term (current) use of oral hypoglycemic drugs; Z79.899 Other long term (current) drug therapy; Z20.822 Contact with and (suspected) exposure to COVID-19
CPT/HCPCS: 36415; 80048; 81001; 85027; 99284; A9270; U0002

== ENCOUNTER 2025-03-22 04:05 | Emergency (ER) | payer SELFPAY ==
[2025-03-22] MEDS ORDERED: LORazepam 0.5 MG Tab PO ONE (04:18)
[2025-03-22 04:36] LABS: BASOPHILS ABSOLUTE AUTO 0.1 x10-3/uL (0.0-0.3); BASOPHILS PERCENT AUTO 0.8 % (0.3-3.8); EOSINOPHILS ABSOLUTE AUTO 0.3 x10-3/uL (0.0-0.6); EOSINOPHILS PERCENT AUTO 2.8 % (0.1-6.8); HEMATOCRIT 48.2 % (38.3-50.1); HEMOGLOBIN 16.7 g/dL (12.9-17.7); LYMPHOCYTES ABSOLUTE AUTO 1.9 x10-3/uL (0.5-4.5); LYMPHOCYTES PERCENT AUTO 21.1 % (15.8-45.3); MEAN CORPUSCULAR HEMOGLOBIN 30.4 pg (27.0-33.3); MEAN CORPUSCULAR HGB CONC 34.7 g/dL (28.7-35.3); MEAN CORPUSCULAR VOLUME 87.6 fL (80.8-98.7); MEAN PLATELET VOLUME 8.5 fL (6.7-11.0); MONOCYTES ABSOLUTE AUTO 0.4 x10-3/uL (0.0-1.2); MONOCYTES PERCENT AUTO 4.6 % (5.5-15.2); NEUTROPHILS ABSOLUTE AUTO 6.3 x10-3/uL (1.7-6.9); NEUTROPHILS PERCENT AUTO 70.7 % (40.3-71.8); PLATELET COUNT,PLT 281 x10(3)uL (117-477); RED BLOOD CELL COUNT 5.51 x10(6)uL (3.90-5.90); RED CELL DISTRIBUTION WIDTH 13.5 % (12.4-15.0); WHITE BLOOD CELL COUNT,WBC 8.9 x10-3/uL (3.2-10.1)
[2025-03-22 04:48] LABS: A/G RATIO 1.2; ALANINE AMINOTRANSFERASE,ALT 62 U/L (12-36); ALBUMIN 4.5 g/dL (3.5-5.2); ALKALINE PHOSPHATASE 138 IU/L (56-112); ASPARTATE AMNIOTRANSFERASE,AST 35 IU/L (5-25); BILIRUBIN TOTAL 0.6 mg/dL (0.1-1.3); BLOOD UREA NITROGEN,BUN 17 mg/dL (7-18); BUN/CREATININE RATIO 12.1 (9-20); CALCIUM 9.2 mg/dL (8.6-10.2); CARBON DIOXIDE,CO2 27 mmol/L (21-32); CHLORIDE,CL 100 mmol/L (100-110); CREATININE 1.4 mg/dL (0.70-1.30); ESTIMATED GFR 64 mL/min (>60); GLUCOSE RANDOM 221 mg/dL (80-116); PROTEIN TOTAL,TP 8.2 g/dL (6.0-8.0); SODIUM,NA 138 mmol/L (135-145)
[2025-03-22 04:49] LABS: POTASSIUM,K 2.8 mmol/L (3.5-5.3)
[2025-03-22 04:52] LABS: METHAMPHETAMINE SCREEN, URINE POSITIVE (NEGATIVE); THC SCREEN,URINE POSITIVE (NEGATIVE)
[2025-03-22 04:53] LABS: AMPHETAMINES SCREEN, URINE POSITIVE (NEGATIVE); BARBITURATE SCREEN,URINE NEGATIVE (NEGATIVE); BENZODIAZEPINES SCREEN,URINE NEGATIVE (NEGATIVE); BUPRENORPHINE SCREEN,URINE POSITIVE (NEGATIVE); METHADONE SCREEN, URINE NEGATIVE (NEGATIVE); OXYCODONE SCREEN,URINE NEGATIVE (NEGATIVE)
[2025-03-22] MEDS: Potassium Chloride 20 MEQ Tab.ER PO ONE (05:01)
[2025-03-22 05:35] VITALS: BP 159/108; PULSE 112
== END 2025-03-22 05:20 | disposition home or self-care (01) ==
LOC: FB.ED 04:05
DX: F41.9 Anxiety disorder, unspecified (principal); E87.6 Hypokalemia; I10 Essential (primary) hypertension; E78.00 Pure hypercholesterolemia, unspecified; E11.9 Type 2 diabetes mellitus without complications; Z79.84 Long term (current) use of oral hypoglycemic drugs; Y09 Assault by unspecified means; Z79.899 Other long term (current) drug therapy; Z88.8 Allergy status to other drugs, medicaments and biological substances
CPT/HCPCS: 36415; 80053; 80307; 85025; 93005; 99284; A9270